=== PATIENT | female | born 1970 | race Caucasian/White ===

== ENCOUNTER 2018-09-19 14:25 | Emergency (ER) | payer SELFPAY ==
[~2018-09-19] VITALS: Ht 157.5 cm; Wt 48.9 kg
[2018-09-19 14:35] VITALS: BP 155/79
== END 2018-09-19 15:33 | disposition left against medical advice (07) ==
LOC: ED 15:27
DX: M54.2 Cervicalgia (principal); R13.10 Dysphagia, unspecified; Y04.8XXA Assault by other bodily force, initial encounter; Y93.01 Activity, walking, marching and hiking; Y92.59 Other trade areas as the place of occurrence of the external cause; Y99.8 Other external cause status
CPT/HCPCS: 72125; 99284

== ENCOUNTER 2021-07-11 10:36 | Emergency (ER) | payer MEDICAID ==
[~2021-07-11] VITALS: Ht 177.8 cm; Wt 56.9 kg
[2021-07-11 10:43] VITALS: BP 161/74
[2021-07-11] MEDS ORDERED: HYDROcodone/APAP 5/325 TABLET ONE (11:27)
[2021-07-11] MEDS ORDERED: METHOCARBAMOL 750 MG TABLET ONE (11:27)
[2021-07-11] MEDS ORDERED: HYDROcodone/APAP 5/325 TABLET PO ONE (11:30)
[2021-07-11] MEDS ORDERED: METHOCARBAMOL 750 MG TABLET PO ONE (11:30)
--- NOTE | 2021-07-11 11:31 | NUR ---
THI IS A 50 YEAR FEMALE WHO WAS BIB AMBULANCE DUE TO CHRONIC BACK PAIN X 24 YEARS. MEDICATED PER MAR. EXPLAINED NEED FOR URINE, PT VERBALIZED UNDERSTANDING
[2021-07-11 12:15] LABS: MICROSCOPIC NOT IND
[2021-07-11] MEDS ORDERED: HYDROmorphone 2 MG/ML, 1ML ONE (12:29)
[2021-07-11] MEDS ORDERED: HYDROmorphone 1 MG/ML, 1ML INJ IM ONE (12:30)
--- NOTE | 2021-07-11 13:04 | NUR ---
PT STATES PAIN IS 5/10
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
== END 2021-07-11 14:03 | disposition home or self-care (01) ==
LOC: ED 10:41
DX: G89.29 Other chronic pain (principal); M54.6 Pain in thoracic spine
CPT/HCPCS: 81003; 96372; 99283; J1170